=== PATIENT | male | born 1965 | race Caucasian/White ===

== ENCOUNTER 2025-07-06 09:41 | Emergency (ER) | payer OTHER ==
[~2025-07-06] VITALS: Ht 177.8 cm; Wt 106.9 kg
[2025-07-06 09:45] VITALS: TEMP 98.3
--- NOTE | 2025-07-06 10:18 | Physician Documentation ---
History of Present Illness Chief Complaint: Abdominal Pain Stated Complaint: R/O PNEUMATOSIS HPI Is a pleasant 59-year-old male that presents to the emergency department for additional diagnostics and workup per his primary care provider he saw a few days ago and underwent diagnostics at that time. Patient reports that he was called by his primary care provider this morning and told that he had free air on his abdominal imaging and that he needed to report to the emergency department for additional imaging. Primary care provider's requested that we do an abdominal CT. Patient has a history significant for left lower quadrant pain with a sharp pains radiating through his abdomen. Patient denies fever chills nausea vomiting diarrhea at this time. Patient does report 1 episode of constipation recently followed by diarrhea. Patient denies any other symptoms at this time. Medication Reconciliation Allergies: Coded Allergies: No Known Allergies (Unverified , 07/06/25) Review of Systems ROS As stated above in the HPI, otherwise all systems are reviewed and negative. Physical Exam Vital Signs: Temperature: 98.3, Source: Temporal, Heart Rate: 108, Respiratory Rate: 16, BP: 152/95, Pulse Oximetry: 99, Weight: 106.900 Oxygen Flow Rate: 0 Progress Results/Orders Results/Orders Orders - LISA LAWSON Ct Abdomen Pelvis (07/06/25 09:55) * Iv Access / Saline Lock * (07/06/25 09:55) Cbc/Diff (07/06/25 09:55) CMP (07/06/25 09:55) Urinalysis, Cult If Indicated (07/06/25 09:55) Vital Signs 07/06/25 09:45 Temp 98.3 Pulse 108 Resp 16 B/P (MAP) 152/95 Pulse Ox 99 O2 Flow Rate 0 Departure Referrals: NO PRIMARY CARE PROVIDER (PCP) LISA LAWSON Jul 06, 2025 10:18
[2025-07-06 10:48] LABS: MEAN PLATELET VOLUME 8.5 FL (7.4-10.4); RED CELL DISTRIBUTION WIDTH 13.3 % (11.5-14.5)
[2025-07-06 11:00] LABS: CREATININE 1.07 MG/DL (0.60-1.10); TOTAL CARBON DIOXIDE 29.3 MMOL/L (24-32); eCRCL 77 ML/MIN; eGFR 71 ML/MIN
[2025-07-06] MEDS ORDERED: iohexol 300mg/ml 100ml inj. ONE (11:22)
--- NOTE | 2025-07-06 12:15 | RADIOLOGY REPORT ---
CLINICAL HISTORY: Free air noted on xray, pain LLQ TECHNIQUE: CT of the abdomen and pelvis was performed with IV contrast. This exam was performed according to our departmental dose optimization program. Up-to-date CT equipment and radiation dose reduction techniques are utilized as appropriate. CTDI 31 DLP 1553 COMPARISON: None FINDINGS: Abdomen/Pelvis: The spleen, pancreas, gallbladder, adrenal glands, right kidney, and bladder are unremarkable. There is a left renal cyst. There is diffuse hepatic steatosis. The prostate gland is moderately enlarged, measuring 5.4 cm in diameter. The abdominal aorta is normal in course and caliber. There are mild aortic atherosclerotic calcifications. There is no significant free intraperitoneal air or fluid. There is no enlarged abdominal or pelvic lymph node. There is no small bowel wall thickening or dilatation. The appendix is normal. There is colonic diverticulosis, [id number] in the left colon. There is moderate focal wall thickening and inflammation at the junction of the descending and sigmoid colon. Other: The imaged lower thorax demonstrates a small hiatal hernia. No acute osseous abnormality is evident. There has been previous surgery at the pubic symphysis. IMPRESSION: Acute diverticulitis at the junction of the descending and sigmoid colon. Diffuse hepatic steatosis. Moderate prostatomegaly.
[2025-07-06 12:28] LABS: LEUKOCYTE ESTERASE ,URINE NEGATIVE (Neg); NITRITES, URINE NEGATIVE (Neg); OCCULT BLOOD,URINE NEGATIVE (Neg)
--- NOTE | 2025-07-06 12:28 | Physician Documentation ---
History of Present Illness Chief Complaint: Abdominal Pain Stated Complaint: R/O PNEUMATOSIS Time Seen by MD: 12:03 Mode of Arrival: SANTHOSH OLMSTEAD Is a pleasant 59-year-old male that presents to the emergency department for additional diagnostics and workup per his primary care provider he saw a few days ago and underwent diagnostics at that time. Patient reports that he was called by his primary care provider this morning and told that he had free air on his abdominal imaging and that he needed to report to the emergency department for additional imaging. Primary care provider's requested that we do an abdominal CT. Patient has a history significant for left lower quadrant pain with a sharp pains radiating through his abdomen. Patient denies fever chills nausea vomiting diarrhea at this time. Patient does report 1 episode of constipation recently followed by diarrhea. Patient denies any other symptoms at this time. The patient has pain began Thursday, four days ago. He has no prior history of diverticulitis though he was diagnosed with diverticulosis when he underwent colonoscopy a few years back. Medication Reconciliation Allergies: Coded Allergies: No Known Allergies (Unverified , 07/06/25) Review of Systems ROS Constitutional: Denies chills, fatigue, fever, weight gain or weight loss. HEENT: Denies hearing loss, sinus pressure or visual changes. Respiratory: Denies cough, shortness of breath or wheezing. Cardiovascular: Denies chest pain, pain while walking (claudication), edema or palpitations. Gastrointestinal: Left lower quadrant pain and constipation. Genitourinary: Denies painful urination (dysuria), excessive amount of urine (polyuria) or urinary frequency. Metabolic/Endocrine: Denies cold intolerance, heat intolerance, excessive thirst (polydipsia) or excessive hunger (polyphagia). Neurological: Denies dizziness, extremity numbness, extremity weakness, headaches, seizures or tremors. Psychiatric: Denies anxiety or depression. Integumentary: Denies breast discharge, breast lump, hives, mole change(s), rash or skin lesion. Musculoskeletal: Denies back pain, joint pain, joint swelling or neck pain. Hematologic: Denies easily bleeding, easily bruises, lymphedema or issues with blood clots. Immunologic: Denies food allergies or seasonal allergies. Physical Exam Vital Signs: Temperature: 98.3, Source: Temporal, Heart Rate: 90, Respiratory Rate: 16, BP: 137/95, Pulse Oximetry: 100, Weight: 106.900 Oxygen Flow Rate: 0 Physical Exam Physical Exam Vitals and nursing note reviewed. Constitutional: General: Patient is awake, alert, oriented x 4 in no acute distress and well appearing. Speech is clear and lucid. Appearance: Normal appearance. Patient is not ill-appearing, toxic-appearing or diaphoretic. HENT: Head: Normocephalic and atraumatic. Mouth/Throat: Mouth: Mucous membranes are moist. Pharynx: Oropharynx is clear. Eyes: General: No scleral icterus. Extraocular Movements: Extraocular movements intact. Pupils: Pupils are equal, round, and reactive to light. Neck: Supple, no Kernig or Brudzinski sign. Cardiovascular: Rate and Rhythm: Normal rate and regular rhythm. Heart sounds: No murmur heard. Pulmonary: Effort: No respiratory distress. Breath sounds: No wheezing, rhonchi or rales. Abdominal: General: There is no distension. Palpations: There is no fluid wave, hepatomegaly or mass. Tenderness: Left lower quadrant tenderness without rebound. Musculoskeletal: General: No swelling or deformity. Skin: Coloration: Skin is not jaundiced. Findings: No erythema or rash. Neurological: Mental Status: Patient is alert. Progress Results/Orders Results/Orders Vital Signs 07/06/25 07/06/25 07/06/25 09:45 11:22 11:22 Temp 98.3 Pulse 108 90 Resp 16 16 B/P (MAP) 152/95 137/95 (109) Pulse Ox 99 100 O2 Flow Rate 0 0 Laboratory Tests Test 07/06/25 10:23 07/06/25 10:32 07/06/25 12:10 Sodium Level 141 Potassium Level 4.0 Chloride Level 103 Carbon Dioxide Level 29.3 Anion Gap 9 Blood Urea Nitrogen 10 Creatinine 1.07 Estimated GFR/1.73 m2 71 BUN/Creatinine Ratio 9.3 L Glucose Level 104 Calcium Level 9.1 Total Bilirubin 0.7 Aspartate Amino Transf (AST/SGOT) 17 Alanine Aminotransferase (ALT/SGPT) 30 Alkaline Phosphatase 55 Total Protein 8.2 Albumin 3.9 Globulin 4.3 Albumin/Globulin Ratio 0.9 L Chemistry Comments White Blood Count 5.7 Red Blood Count 4.94 Hemoglobin 15.4 Hematocrit 45.6 Mean Corpuscular Volume 92.4 Mean Corpuscular Hemoglobin 31.2 H Mean Corpuscular Hemoglobin Concent 33.7 Red Cell Distribution Width 13.3 Platelet Count 250 Mean Platelet Volume 8.5 Neutrophils (%) (Auto) 67.6 Lymphocytes (%) (Auto) 18.9 L Monocytes (%) (Auto) 10.1 Eosinophils (%) (Auto) 3.0 Basophils (%) (Auto) 0.4 Neutrophils # (Auto) 3.8 Lymphocytes # (Auto) 1.1 Monocytes # (Auto) 0.6 Eosinophils # (Auto) 0.2 Basophils # (Auto) 0.0 CBC Comment Urine Comment Medical Decision Making Additional information obtaine: family Findings Patient presents with left lower quadrant pain that is improving. He was referred here by his PCP due to a question of free air demonstrated on an ultrasound of the abdomen. CT scan does not confirmed this. He does have diverticulitis but is improving. I have sent prescriptions for ciprofloxacin an d metronidazole that he can begin if he fails to continue improving over the next 2-3 days. This was explained to the patient and he agrees with this plan. Differential Dx:Considerations: Appendicitis, Bowel obstruction, Constipation, Diverticular disease, Gastroenteritis, Inflammatory BD, Pancreatitis, Urinary tract infection, Urolithiasis Departure Disposition: 01 HOME / SELF CARE / HOMELESS Impression: Primary Impression: Diverticulitis Condition: Stable Additional Instructions: You have been evaluated for abdominal pain. You do have diverticulitis (however, there is no free air in your abdomen). I have sent prescriptions for antibiotics to your pharmacy ([facility] in [place]) and I would recommend starting these if you are not improving without them over the next few days. You may also take acetaminophen and/or ibuprofen, as needed. You can always return here for worsening symptoms or new/unusual symptoms. Referrals: NO PRIMARY CARE PROVIDER (PCP) Prescriptions Metronidazole* (Flagyl*) 500 Mg Tablet 1 TAB PO Q12H for 7 Days, #14 TAB Prov: CASA KAMINSKI MD 07/06/25 Ciprofloxacin HCl (Ciprofloxacin HCl) 500 Mg Tab 1 TAB PO Q12H, #14 TAB Prov: CASA KAMINSKI MD 07/06/25 Signature Scribe Signature: . Attestation: . CASA KAMINSKI MD Jul 06, 2025 12:28
[2025-07-06 12:37] LABS: UA COLLECTION TYPE CLN CATCH MIDSTREAM
[2025-07-06] MEDS ORDERED: METR-159 PO (14:07)
[2025-07-06] MEDS ORDERED: CIPR-458 PO (14:07)
[2025-07-06 14:24] VITALS: BP 139/99; PULSE 89; RESP 14; O2SAT 97
== END 2025-07-06 14:28 | disposition home or self-care (01) ==
LOC: ER 09:42
DX: K57.92 Diverticulitis of intestine, part unspecified, without perforation or abscess without bleeding (principal)
CPT/HCPCS: 36415; 74177; 80053; 81003; 83605; 83690; 83735; 85025; 99285; Q9967